=== PATIENT | male | born 1960 | race Native Hawaiian/Other Pacific Islander ===

== ENCOUNTER 2021-10-08 16:00 | Emergency (ER) | payer OTHER ==
[~2021-10-08] VITALS: Ht 193 cm; Wt 118.0 kg
[2021-10-08 16:00] VITALS: BP 144/68; TEMP 97.8
[2021-10-08 16:20] LABS: PLATELET COUNT 195 K/uL (142-355)
[2021-10-08 16:26] LABS: POTASSIUM 4.3 mmol/L (3.6-5.2)
[2021-10-09] MEDS ORDERED: CLOPIDOGREL75 MG PO (08:28)
[2021-10-09] MEDS ORDERED: ESCITALOPRAM10 MG PO (08:29)
[2021-10-09] MEDS ORDERED: FAMOTIDINE40 MG PO (08:30)
[2021-10-09] MEDS ORDERED: GRALISE600 MG PO (08:31)
[2021-10-09] MEDS ORDERED: INSUINJ8 SC (08:32)
[2021-10-09] MEDS ORDERED: EUTHYROX75 MCG PO (08:32)
[2021-10-09] MEDS ORDERED: METO-837 PO (08:33)
[2021-10-09] MEDS ORDERED: NOVOLIN R100 UNIT/2 SC (08:34)
[2021-10-09] MEDS ORDERED: OMEPRAZOLE40 MG PO (08:35)
[2021-10-09] MEDS ORDERED: QUETIAPINE200 MG PO (08:36)
[2021-10-09] MEDS ORDERED: ROSUVASTATIN CAL5 MG PO (08:37)
[2021-10-09] MEDS ORDERED: TRAZODONE HYDRO50 MG PO (08:37)
[2021-10-09] MEDS ORDERED: CYCLOBENZAPRINE10 MG PO (08:42)
== END 2021-10-08 17:00 | disposition still patient (30) ==
LOC: ED 16:00
PROVIDERS: Emergency Medicine
DX: R46.89 Other symptoms and signs involving appearance and behavior (principal); I10 Essential (primary) hypertension; Z11.52 Encounter for screening for COVID-19; Z04.6 Encounter for general psychiatric examination, requested by authority
CPT/HCPCS: 80053; 85027; 87635; 93005; 99283; U0003

== ENCOUNTER 2022-08-23 18:17 | Emergency (ER) | payer OTHER ==
[~2022-08-23] VITALS: Ht 193 cm; Wt 142.6 kg
[~2022-08-23 18:17] MED LIST: CLOPIDOGREL75 MG PO; CYCLOBENZAPRINE10 MG PO; ESCI10TA PO; ESCITALOPRAM10 MG PO; EUTHYROX75 MCG PO; FAMOTIDINE40 MG PO; GRALISE600 MG PO; INSUINJ8 SC; MAGN400T4 PO; METO-837 PO; NOVOLIN R100 UNIT/2 SC; OMEPRAZOLE40 MG PO; QUET25TA2 PO; QUET300T PO; QUETIAPINE200 MG PO; ROSUVASTATIN CAL5 MG PO; TRAZODONE HYDRO50 MG PO; VITAMIN D50000 UNIT PO
[2022-08-23 18:18] VITALS: TEMP 97.2
[2022-08-23 19:06] LABS: PLATELET COUNT 289 K/uL (142-355)
[2022-08-23 19:12] LABS: POTASSIUM 6.4 mmol/L (3.6-5.2)
[2022-08-23 21:30] VITALS: BP 177/75
[2022-08-24] MEDS ORDERED: OXYGEN (10:41)
[2022-08-24] MEDS ORDERED: ESCI10TA PO (10:44)
[2022-08-24] MEDS ORDERED: QUETIAPINE50 MG PO (10:45)
[2022-08-24] MEDS ORDERED: TRAZ50TA36 PO (10:46)
[2022-08-24] MEDS ORDERED: SANTYL250 UNIT/G TOP (10:47)
[2022-08-24] MEDS ORDERED: LEVEMIR FL100 UNIT/M SC (10:47)
[2022-08-24] MEDS ORDERED: NOVOLIN R100 UNIT/1 SC (10:48)
[2022-08-24] MEDS ORDERED: ESCITALOPRAM5 MG PO (10:49)
[2022-08-24] MEDS ORDERED: ACETAMINOPHEN650 M2 PO (10:50)
[2022-08-24] MEDS ORDERED: CRESTOR5 MG PO (10:50)
[2022-08-24] MEDS ORDERED: MAGN400T4 PO (10:51)
[2022-08-24] MEDS ORDERED: METO50TA27 PO (10:51)
[2022-08-24] MEDS ORDERED: LISI20TA11 PO (10:52)
[2022-08-24] MEDS ORDERED: HYDR5TAB9 PO (10:53)
[2022-08-24] MEDS ORDERED: EUTHYROX88 MCG PO (10:53)
[2022-08-24] MEDS ORDERED: FURO20TA67 PO (10:54)
[2022-08-24] MEDS ORDERED: GRALISE600 MG PO (10:54)
[2022-08-24] MEDS ORDERED: FAMOTIDINE40 MG PO (10:55)
[2022-08-24] MEDS ORDERED: ALBUTEROL0.083 % INH (10:56)
[2022-08-24] MEDS ORDERED: OMEP40CA PO (10:56)
[2022-08-24] MEDS ORDERED: SUPPLEMENT PO (10:58)
== END 2022-08-23 22:15 | disposition other institution (70) ==
LOC: ED 18:17
PROVIDERS: Family Medicine
DX: N28.9 Disorder of kidney and ureter, unspecified (principal); F03.911 Unspecified dementia, unspecified severity, with agitation; E87.5 Hyperkalemia; Z11.52 Encounter for screening for COVID-19; Z04.6 Encounter for general psychiatric examination, requested by authority
CPT/HCPCS: 36415; 51702; 80053; 81000; 85027; 87635; 93005; 96361; 96374; 99284; J1815; U0003